=== PATIENT | female | born 1965 | race American Indian/Alaskan Native ===

== ENCOUNTER 2019-04-29 10:25 | Emergency (ER) | payer MEDICAID ==
[2019-04-29 10:37] VITALS: BP 158/86
--- NOTE | 2019-04-29 12:27 | Emergency Department Report ---
Chief Complaint: Pain General Stated Complaint: STAGE 3 BREAST CANCER IN PAIN Time Seen by Provider: 04/29/19 12:25 - HPI History of Present Illness: 53 yo female who presents with breast pain, takes PErcocet for cancer related pain Stage III. oncologist in [place] - Exam Vital Signs: Vital Signs 04/29/19 10:34 Temperature 98.3 F Pulse Rate 73 Respiratory 20 Rate Blood Pressure 158/86 O2 Sat by Pulse 98 Oximetry MSE screening note: Focused history and physical exam performed. Due to findings the following was ordered: daughter on Monday of breast CA, no SI, given referral to mental health center for grief counseling. Patient does not like to take the Percocet. recommended ibuprofen OTC ED Disposition for MSE Clinical Impression: Grief at loss of child, Breast cancer Disposition: MED SCREENING EXAM-LEFT Condition: Stable Referrals: [facility] [Outside] - 3-5 Days
== END 2019-04-29 12:27 | disposition left against medical advice (07) ==
LOC: ED 10:25
DX: C50.919 Malignant neoplasm of unspecified site of unspecified female breast (principal)
CPT/HCPCS: 99281

== ENCOUNTER 2019-12-15 09:56 | Emergency (ER) | payer MEDICAID ==
[2019-12-15 10:05] VITALS: BP 150/82
[2019-12-15] MEDS ORDERED: IBUPROFEN 800 MG TAB PO ONE (13:42)
--- NOTE | 2019-12-15 13:57 | Emergency Department Report ---
ED Fall HPI - General Chief Complaint: Fall Stated Complaint: SLIP AND FALL Time Seen by Provider: 12/15/19 13:11 Source: patient Mode of arrival: Ambulatory - History of Present Illness Initial Comments: This is a 54-year-old female nontoxic, well nourished in appearance, no acute signs of distress presents to the ED with c/o of neck pain, thoracic pain, lumbar spine pain and bilateral ankle pains s/p fall 2 days. Patient stated that she had a trip and fall. Patient denies any other trauma. Patient denies any numbness, tingling, fever, chills, nausea, vomiting, chest pain, shortness of breath, headache, stiff neck. Denies any LOC. Patient denies any joint swelling or joint redness. Patient agrees to some decreased range of motion of ankles due to pain. Patient stated has decreased gait due to pain. Patient stated allergies to PCN. MD Complaint: fall -: days(s) (2) Loss of Consciousness: none Prolonged Down Time?: no Symptoms Prior to Fall: none Location: neck, back Location - Extremities: Left: Ankle, Right: Ankle Severity: moderate Severity scale (0 -10): 8 Context: tripped/slipped Associated Symptoms: neck pain. denies: headache, numbness, weakness, chest paint, shortness of breath, abdominal pain, hematuria, unable to walk, lightheaded, vertigo, confusion - Related Data Previous Rx's Medication Instructions Recorded Last Taken Type Acetaminophen [Acetaminophen 8 650 mg PO Q8H PRN #20 tablet.er 12/15/19 Unknown Rx Hour] Azithromycin [Zithromax Z-ROBERTO] 250 mg PO DAILY #6 tablet 12/15/19 Unknown Rx Cyclobenzaprine [Flexeril] 10 mg PO QHS PRN #10 tablet 12/15/19 Unknown Rx Allergies Allergy/AdvReac Type Severity Reaction Status Date / Time Penicillins Allergy Rash Verified 12/15/19 10:01 ED Review of Systems ROS: Stated complaint: SLIP AND FALL Other details as noted in HPI Comment: All other systems reviewed and negative Constitutional: denies: chills, fever Eyes: denies: eye pain, eye discharge, vision change ENT: denies: ear pain, throat pain Respiratory: denies: cough, shortness of breath, wheezing Cardiovascular: denies: chest pain, palpitations Endocrine: no symptoms reported Gastrointestinal: denies: abdominal pain, nausea, diarrhea Genitourinary: denies: urgency, dysuria, discharge Musculoskeletal: back pain. denies: joint swelling, arthralgia Skin: denies: rash, lesions Neurological: denies: headache, weakness, paresthesias Psychiatric: denies: anxiety, depression Hematological/Lymphatic: denies: easy bleeding, easy bruising ED Past Medical Hx - Past Medical History Hx Hypertension: Yes Additional medical history: Breast CA, "heart failure." - Social History Smoking Status: Never Smoker Substance Use Type: None - Medications Home Medications: Home Medications Medication Instructions Recorded Confirmed Last Taken Type Acetaminophen [Acetaminophen 8 650 mg PO Q8H PRN #20 tablet.er 12/15/19 Unknown Rx Hour] Azithromycin [Zithromax Z-ROBERTO] 250 mg PO DAILY #6 tablet 12/15/19 Unknown Rx Cyclobenzaprine [Flexeril] 10 mg PO QHS PRN #10 tablet 12/15/19 Unknown Rx ED Physical Exam - General Limitations: No Limitations General appearance: alert, in no apparent distress - Head Head exam: Present: atraumatic, normocephalic - Eye Eye exam: Present: normal appearance, PERRL, EOMI - Neck Neck exam: Present: normal inspection, full ROM. Absent: tenderness, meningismus, lymphadenopathy - Respiratory Respiratory exam: Absent: respiratory distress - Cardiovascular Cardiovascular Exam: Present: regular rate - GI/Abdominal GI/Abdominal exam: Present: soft. Absent: distended, tenderness - Extremities Exam Extremities exam: Present: full ROM, tenderness, normal capillary refill. Absent: joint swelling, calf tenderness - Expanded Lower Extremity Exam Left Hip exam: Present: normal inspection (bilateral exam), full ROM (bilateral exam). Absent: tenderness, swelling Upper Leg exam: Present: normal inspection (bilateral exam), full ROM (bilateral exam). Absent: tenderness Knee exam: Present: normal inspection (bilateral exam), full ROM (bilateral exam). Absent: tenderness, swelling Lower Leg exam: Present: normal inspection (bilateral exam), full ROM (bilateral exam). Absent: tenderness, swelling Ankle exam: Present: full ROM (bilateral exam), tenderness (bilateral exam), swelling (bilateral exam). Absent: abrasion, laceration, ecchymosis, deformity, crepidus, dislocation, erythema, anterior draw sign Foot/Toe exam: Present: normal inspection (bilateral exam), full ROM (bilateral exam). Absent: tenderness, swelling Neuro vascular tendon exam: Present: no vascular compromise (bilateral exam) Gait: Positive: observed and normal - Back Exam Back exam: Present: normal inspection, full ROM, paraspinal tenderness (Cervical, thoracic and lumbar spine), vertebral tenderness (Cervical, thoracic and lumbar spine). Absent: tenderness, CVA tenderness (R), CVA tenderness (L), muscle spasm, rash noted - Neurological Exam Neurological exam: Present: alert, oriented X3, normal gait - Expanded Neurological Exam Expanded Patient oriented to: Present: person, place, time Cranial nerves: EOM's Intact: Normal, Facial Sensation: Normal Cerebellar function: Finger to Nose: Normal Upper motor neuron: Pronator Drift: Normal, Sensory Extinction: Normal Motor strength exam: RUE: 5, LUE: 5, RLE: 5, LLE: 5 Best Eye Response ([place]): (4) open spontaneously Best Motor Response ([place]): (6) obeys commands Best Verbal Response ([place]): (5) oriented [place] Total: 15 - Psychiatric Psychiatric exam: Present: normal affect, normal mood - Skin Skin exam: Present: warm, dry, intact, normal color. Absent: rash ED Course Vital Signs 12/15/19 10:03 Temperature 98.2 F Pulse Rate 63 Respiratory 16 Rate Blood Pressure 150/82 O2 Sat by Pulse 98 Oximetry - Reevaluation(s) Reevaluation #1: 12/15/19 13:59 Patient is speaking in full sentences with no signs of distress noted. ED Medical Decision Making - Radiology Data Referring Physician: BÁRBARA MONROE Patient Name: RICH GOINS Date of : 1965 Sex: Female Report Date: 2019-12-15 Report Status: [place] [address] Cat Scan Report Signed Patient: RICH GOINS MR#: [id number] : 1965 Acct:[id number] Age/Sex: 54 / F ADM Date: 12/15/19 Loc: ED Attending Dr: Ordering Physician: BÁRBARA MONROE NP Date of Service: 10/04/20 Procedure(s): CT thoracic spine wo con Accession Number(s): [id number] cc: BÁRBARA MONROE NP CT THORACIC SPINE WITHOUT CONTRAST INDICATION: MAIN. TECHNIQUE: All CT scans at this location are performed using CT dose reduction for ALARA by means of automated exposure control. Axial CT images were obtained through the thoracic spine. Sagittal and coronal reformatted images were produced. COMPARISON: None available. FINDINGS: Fracture: None. Subluxation: None. Spinal canal: No significant compromise. Disc spaces: Mild spondylosis of mid to lower thoracic spine Facet joints: Normal. Paraspinal soft tissues: No soft tissue swelling. Normal. Additional findings: None. Visualized lungs and pleura: Patchy groundglass parenchymal and increased interstitial markings both lung bases could represent early pneumonitis or pulmonary edema 5 mm subsolid left upper lobe pulmonary nodule image 85 IMPRESSION: 1. No acute findings. 3. Bilateral lower lobe increased interstitial/groundglass parenchymal disease could represent atypical COVID pneumonia or early pulmonary edema 3. Incidental 5 mm left upper lobe subsolid pulmonary nodule INCIDENTAL PULMONARY NODULE RECOMMENDATION RECOMMENDATION: Subsolid Nodule (Ground glass) <6 mm - No routine follow-up Note These recommendations do not apply to lung cancer screening, patients with immunosuppression, or patients with known primary cancer. Note Newly detected indeterminate nodule in persons 35 years of age or older. Persons under the age of 35 should not receive follow-up unless there is a known primary cancer. Note A Perifissural Nodule is a fissure-attached/subpleural, homogeneous, solid nodule that had smooth margins and an oval, lentiform, or triangular shape. They represent about 20% of nodules detected in lung cancer s creening, are invariably benign, and do not require follow-up. Nodules 10 mm or larger (or those with suspicious features) will continue to be managed based on the size criteria. Low Risk Patient -- minimal or absent history of smoking and of other known risk factors. High Risk Patient -- history of smoking or of other known risk factors. Nodule dimensions are average of long and short axes, round ed to the nearest millimeter. Based on 2017 Fleischner Society Guidelines found in Radiology 2017 284:228-243. https://doi.org/10.1148/radiol.4491653465 https://www.ncbi.nlm.nih.gov/pmc/articles/AAD8858829/ Signer Name: Suresh Menjivar MD Signed: 12/15/2019 3:18 PM Workstation Name: [id number] Transcribed By: TL Dictated By: Suresh Menjivar MD Electronically Authenticated By: Suresh Menjivar MD Signed Date/Time: 12/15/191517 DD/ 13 TD/TT: Referring Physician: BÁRBARA MONROE Patient Name: RICH GOINS Date of : 1965 Sex: Female Report Date: 2019-12-15 Report Status: Finalized [facility] [address] [place] [address] Cat Scan Report Signed Patient: RICH GOINS MR#: [id number] : 1965 Acct:[id number] Age/Sex: 54 / F ADM Date: 12/15/19 Loc: ED Attending Dr: Ordering Physician: BÁRBARA MONROE NP Date of Service: 12/15/19 Procedure(s): CT lumbar spine wo con Accession Number(s): [id number] cc: BÁRBARA MONROE NP CT lumbar spine wo con INDICATION / CLINICAL INFORMATION: 54 years Female; spinal tenderness s/p fall. TECHNIQUE: Axial CT images of the lumbar spine were obtained after administration of intrathecal contrast. Sagittal and coronal reformatted images were produced. All CT scans at this location are performed using CT dose reduction for ALARA by means of automated exposure control. COMPARISON: None available. FINDINGS: POST-SURGICAL CHANGES: None. ALIGNMENT: There is slight curvature of the upper lumbar spine, convex toward the right. There is no significant spondylolisthesis. VERTEBRAE: There are multilevel endplate changes involving the lumbar spine, particularly at L5-S1 with endplate sclerosis. However, there is no clear CT evidence of acute compression fracture involving the lumbar spine. INTERVERTEBRAL DISCS: The posterior spondylosis at L5-S1 mildly encroaches on the lateral recesses bilaterally. Additionally, there appears be moderate neural foraminal narrowing bilaterally. There is milder disc bulge at L4-L5 which slightly flattens the ventral thecal sac. The neural foramen appear patent at. There is also disc bulge L3-4 with slight flattening of the ventral thecal sac. There is mild left facet joint arthropathy with mild left neural foraminal narrowing. PARASPINAL SOFT TISSUES: No significant abnormality. ADDITIONAL FINDINGS: None. IMPRESSION: 1. There are multilevel degenerative the changes involving lumbar spine, most oblique L5-S1 as detailed above as detailed above. 2. There is no CT evidence of acute compression fracture Signer Name: Saleem Landry MD Signed: 12/15/2019 4:11 PM Workstation Name: [id number] Transcribed By: MR Dictated By: Saleem Landry MD Electronically Authenticated By: Saleem Landry MD Signed Date/Time: 12/15/19 161 DD/ 04 TD/TT: Referring Physician: BÁRBARA MONROE Patient Name: RICH GOINS Date of : 1965 Sex: Female Report Date: 2019-12-15 Report Status: [place] [address] Cat Scan Report Signed Patient: RICH GOINS MR#: [id number] : 1965 Acct:[id number] Age/Sex: 54 / F ADM Date: 12/15/19 Loc: ED Attending Dr: Ordering Physician: BÁRBARA MONROE NP Date of Service: 12/15/19 Procedure(s): CT cervical spine wo con Accession Number(s): [id number] cc: BÁRBARA MONROE NP CT CERVICAL SPINE WITHOUT CONTRAST INDICATION: Fall with spinal tenderness. TECHNIQUE: All CT scans at this location are performed using CT dose reduction for ALARA by means of automated exposure control. Axial CT images were obtained through the cervical spine. Sagittal and coronal reformatted images were produced. COMPARISON: None available. FINDINGS: Fracture: None. Subluxation: None. Spinal canal: No significant compromise. Disc spaces: Moderate discogenic degenerative disease C5-7. Facet joints: Normal. Paraspinal soft tissues: No soft tissue swelling. Normal. Additional findings: None. Lung apices: Normal. IMPRESSION: 1. No acute findings. 2. moderate discogenic degenerative disease C5-7 Signer Name: Suresh Menjivar MD Signed: 12/15/2019 3:09 PM Workstation Name: [id number] Transcribed By: TL Dictated By: Suresh Menjivar MD Electronically Authenticated By: Suresh Menjivar MD Signed Date/Time: 12/15/19 1509 DD/ 150 TD/TT: Referring Physician: BÁRBARA MONROE Patient Name: RICH GOINS Date of : 1965 Sex: Female Report Date: 2019-12-15 Report Status: Finalized [address] [address] XRay Report Signed Patient: RICH GOINS MR#: [id number] : 1965 Acct:[id number] Age/Sex: 54 / F ADM Date: 12/15/19 Loc: ED Attending Dr: Ordering Physician: BÁRBARA MONROE NP Date of Service: 12/15/19 Procedure(s): XR ankle BILAT 3+V Accession Number(s): [id number] cc: BÁRBARA MONROE NP Fluoro Time In Minutes: EXAMINATION: Left ankle radiograph, 4 views, 12/15/2019 CLINICAL INFORMATION: Left ankle pain after fall COMPARISON: None. FINDINGS: There is mild generalized soft tissue swelling of the left ankle without evidence for acute fracture or dislocation. Signer Name: Jeannine Martinez MD Signed: 12/15/2019 2:14 PM Workstation Name: [id number] Transcribed By: Dictated By: Jeannine Martinez MD Electronically Authenticated By: Jeannine Martinez MD Signed Date/Time: 12/15/19 1414 DD/ 141 TD/TT: - Medical Decision Making This is a 54-year-old female that presents with fall with possible COVID PNA. Patient is stable was examined by me. There is no cauda equina syndrome during examination. No bladder or bowel instability. Patient received medical treatment in the ED which stated that her symptoms has resolved and subsided. Patient is discharged with muscle relaxant and Tylenol and azith. Patient was educated of COVID and to self quarantine and to seek medical attention if symptoms worsen. Patient was referred for COVID swabs. Patient was instructed not to operate any machinery while taking muscle relaxant as they cause her drowsiness. Patient was referred to Follow-up with a primary care doctor in 3-5 days or if symptoms worsen and continue return to emergency room as soon as possible. At time of discharge, the patient does not seem toxic or ill in appearance. No acute signs of distress noted. Patient agrees to discharge treatment plan of care. No further questions noted by the patient. This chart is dictated with using [employer] Dictation Program Critical care attestation.: If time is entered above; I have spent that time in minutes in the direct care of this critically ill patient, excluding procedure time. ED Disposition Clinical Impression: Pneumonia due to COVID-19 virus, History of sprain of both ankles Fall Qualifiers: Encounter type: initial encounter Qualified Code(s): W19.XXXA - Unspecified fal l, initial encounter Cervical muscle strain Qualifiers: Encounter type: initial encounter Qualified Code(s): S16.1XXA - Strain of muscle, fascia and tendon at neck level, initial encounter Low back strain Qualifiers: Encounter type: initial encounter Qualified Code(s): S39.012A - Strain of muscle, fascia and tendon of lower back, initial encounter Strain of thoracic region Qualifiers: Encounter type: initial encounter Qualified Code(s): S29.019A - Strain of muscle and tendon of unspecified wall of thorax, initial encounter Disposition: DC-01 TO HOME OR SELFCARE Is pt being admited?: No Does the pt Need Aspirin: No Condition: Stable Instructions: Muscle Strain (ED), COVID-19, Cyclobenzaprine (By mouth) Additional Instructions: Follow-up with a primary care and orthopedic doctor in 3-5 days or if symptoms w orsen and continue return to emergency room as soon as possible. As educated and instructed to you must self quarantine yourself and people that you have been in close contact with similar symptoms for the next 14 days. Please see your nearest health department or primary care doctor that you are referred to for COVID testing. Increased rest, hydration, and take Tylenol as prescribed for fever episode. No physical activity that extremity until cleared by orthopedic doctor Prescriptions: Cyclobenzaprine [Flexeril] 10 mg PO QHS PRN #10 tablet PRN Reason: Muscle Spasm Acetaminophen [Acetaminophen 8 Hour] 650 mg PO Q8H PRN #20 tablet.er PRN Reason: pain/fever Azithromycin [Zithromax Z-ROBERTO] 250 mg PO DAILY #6 tablet Referrals: PRIMARY CAREMD [Primary Care Provider] - 3-5 Days FILI CAR MD [Staff Physician] - 3-5 Days [facility] [Provider Group] - 3-5 Days MAKAYLA GUERRERO MD [Staff Physician] - 3-5 Days Forms: Work/School Release Form(ED)
--- NOTE | 2019-12-15 14:19 | XRay Report ---
EXAMINATION: Left ankle radiograph, 4 views, 12/15/2019 CLINICAL INFORMATION: Left ankle pain after fall COMPARISON: None. FINDINGS: There is mild generalized soft tissue swelling of the left ankle without evidence for acute fracture or dislocation. Signer Name: Jeannine Martinez MD Signed: 12/15/2019 2:14 PM Workstation Name: [id number]
--- NOTE | 2019-12-15 15:13 | Cat Scan Report ---
CT CERVICAL SPINE WITHOUT CONTRAST INDICATION: Fall with spinal tenderness. TECHNIQUE: All CT scans at this location are performed using CT dose reduction for ALARA by means of automated e xposure control. Axial CT images were obtained through the cervical spine. Sagittal and coronal reformatted images we re produced. COMPARISON: None available. FINDINGS: Fracture: None. Subluxation: None. Spinal canal: No significant compromise. Disc spaces: Moderate discogenic degenerative disease C5-7. Facet joints: Normal. Paraspinal soft tissues: No soft tissue swelling. Normal. Additional findings: None. Lung apices: Normal. IMPRESSION: 1. No acute findings. 2. moderate discogenic degenerative disease C5-7 Signer Name: Suresh Menjivar MD Signed: 12/15/2019 3:09 PM Workstation Name: [id number]
--- NOTE | 2019-12-15 15:23 | Cat Scan Report ---
CT THORACIC SPINE WITHOUT CONTRAST INDICATION: MAIN. TECHNIQUE: All CT scans at this location are performed using CT dose reduction for ALARA by means of automated e xposure control. Axial CT images were obtained through the thoracic spine. Sagittal and coronal refor matted images were produced. COMPARISON: None available. FINDINGS: Fracture: None. Subluxation: None. Spinal canal: No significant compromise. Disc spaces: Mild spondylosis of mid to lower thoracic spine Facet joints: Normal. Paraspinal soft tissues: No soft tissue swelling. Normal. Additional findings: None. Visualized lungs and pleura: Patchy groundglass parenchymal and increased interstitial markings both lung bases could represent early pneumonitis or pulmonary edema 5 mm subsolid left upper lobe pulmona ry nodule image 85 IMPRESSION: 1. No acute findings. 3. Bilateral lower lobe increased interstitial/groundglass parenchymal disease could represent atypic al COVID pneumonia or early pulmonary edema 3. Incidental 5 mm left upper lobe subsolid pulmonary nodule INCIDENTAL PULMONARY NODULE RECOMMENDATION RECOMMENDATION: Subsolid Nodule (Ground glass) <6 mm - No routine follow-up Note These recommendations do not apply to lung cancer screening, patients with immunosuppression, o r patients with known primary cancer. Note Newly detected indeterminate nodule in persons 35 years of age or older. Persons under the age of 35 should not receive follow-up unless there is a known primary cancer. Note A Perifissural Nodule is a fissure-attached/subpleural, homogeneous, solid nodule that had smoo th margins and an oval, lentiform, or triangular shape. They represent about 20% of nodules detected in lung cancer screening, are invariably benign, and do not require follow-up. Nodules 10 mm or large r (or those with suspicious features) will continue to be managed based on the size criteria. Low Risk Patient -- minimal or absent history of smoking and of other known risk factors. High Risk Patient -- history of smoking or of other known risk factors. Nodule dimensions are average of long and short axes, rounded to the nearest millimeter. Based on 2017 Fleischner Society Guidelines found in Radiology 2017 284:228-243. https://doi.org/10.1148/radiol.7087726454 https://www.ncbi.nlm.nih.gov/pmc/articles/JHP0565736/ Signer Name: Suresh Menjivar MD Signed: 12/15/2019 3:18 PM Workstation Name: [id number]
--- NOTE | 2019-12-15 16:16 | Cat Scan Report ---
CT lumbar spine wo con INDICATION / CLINICAL INFORMATION: 54 years Female; spinal tenderness s/p fall. TECHNIQUE: Axial CT images of the lumbar spine were obtained after administration of intrathecal contrast. Sagi ttal and coronal reformatted images were produced. All CT scans at this location are performed using CT dose reduction for ALARA by means of automated exposure control. COMPARISON: None available. FINDINGS: POST-SURGICAL CHANGES: None. ALIGNMENT: There is slight curvature of the upper lumbar spine, convex toward the right. There is no significant spondylolisthesis. VERTEBRAE: There are multilevel endplate changes involving the lumbar spine, particularly at L5-S1 wi th endplate sclerosis. However, there is no clear CT evidence of acute compression fracture involving the lumbar spine. INTERVERTEBRAL DISCS: The posterior spondylosis at L5-S1 mildly encroaches on the lateral recesses bi laterally. Additionally, there appears be moderate neural foraminal narrowing bilaterally. There is milder disc bulge at L4-L5 which slightly flattens the ventral thecal sac. The neural forame n appear patent at. There is also disc bulge L3-4 with slight flattening of the ventral thecal sac. T here is mild left facet joint arthropathy with mild left neural foraminal narrowing. PARASPINAL SOFT TISSUES: No significant abnormality. ADDITIONAL FINDINGS: None. IMPRESSION: 1. There are multilevel degenerative the changes involving lumbar spine, most oblique L5-S1 as detail ed above as detailed above. 2. There is no CT evidence of acute compression fracture Signer Name: Saleem Landry MD Signed: 12/15/2019 4:11 PM Workstation Name: [id number]
== END 2019-12-15 16:30 | disposition home or self-care (01) ==
LOC: ED 09:56
DX: S29.012A Strain of muscle and tendon of back wall of thorax, initial encounter (principal); S39.012A Strain of muscle, fascia and tendon of lower back, initial encounter; S16.1XXA Strain of muscle, fascia and tendon at neck level, initial encounter; U07.1 COVID-19; J12.89 Other viral pneumonia; M25.571 Pain in right ankle and joints of right foot; M25.572 Pain in left ankle and joints of left foot; I10 Essential (primary) hypertension; Z79.2 Long term (current) use of antibiotics; Z79.899 Other long term (current) drug therapy; Z88.0 Allergy status to penicillin; W01.0XXA Fall on same level from slipping, tripping and stumbling without subsequent striking against object, initial encounter; Y93.89 Activity, other specified; Y92.89 Other specified places as the place of occurrence of the external cause; Y99.8 Other external cause status
CPT/HCPCS: 72125; 72128; 72131

== ENCOUNTER 2020-02-12 19:43 | Emergency (ER) | payer MEDICAID ==
[2020-02-12 20:08] VITALS: BP 152/80
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
[2020-02-12] MEDS ORDERED: KETOROLAC 60 MG/2 ML INJ IM ONE (22:36)
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
== END 2020-02-12 23:05 | disposition home or self-care (01) ==
LOC: ED 19:43
DX: M54.2 Cervicalgia (principal); M54.6 Pain in thoracic spine; R51.9 Headache, unspecified; I10 Essential (primary) hypertension; Z79.1 Long term (current) use of non-steroidal anti-inflammatories (NSAID); Z79.899 Other long term (current) drug therapy; Z88.0 Allergy status to penicillin; V49.49XA Driver injured in collision with other motor vehicles in traffic accident, initial encounter; Y93.89 Activity, other specified; Y92.410 Unspecified street and highway as the place of occurrence of the external cause; Y99.8 Other external cause status
CPT/HCPCS: 70450; 99283; J1885